=== PATIENT | female | born 1945 | race Caucasian/White ===

== ENCOUNTER 2019-04-04 16:55 | Emergency (ER) | payer OTHER ==
[~2019-04-04] VITALS: Ht 170.2 cm; Wt 65.8 kg
[~2019-04-04 16:55] MED LIST: ATOR10 PO; Antivert25 MG PO; CEPH500 PO; CYAN100 PO; ERGO50000 PO; GABA800 PO; GLIP10 PO; HYDACE5 PO; HYDR1TAB94 PO; INSDET100; INSR10I SC; INSULANI SC; INSULANI SUBQ; INSULANPEN SC; LOSA25 PO; MELO7.5 PO; METF500 PO; NAPR220 PO; Naprosyn375 MG PO; Norco 5-325 Ta1 EACH PO; ONDA4 PO; Oxycodone HCl5 M1 PO; PARO20 PO; RXHYDACE PO; SULTRIDS PO; TRADJENTA5 MG PO; Ultram50 MG PO; VICODIN 5-3001 EACH PO; Valium5 MG PO; Vibramycin100 MG PO
[2019-04-04] MEDS ORDERED: Percocet 5-3251 EACH PO (19:57)
== END 2019-04-04 20:49 | disposition home or self-care (01) ==
LOC: ER 16:55
DX: S82.045A Nondisplaced comminuted fracture of left patella, initial encounter for closed fracture (principal); S80.01XA Contusion of right knee, initial encounter; S20.219A Contusion of unspecified front wall of thorax, initial encounter; M25.522 Pain in left elbow; M25.521 Pain in right elbow; E11.40 Type 2 diabetes mellitus with diabetic neuropathy, unspecified; Z79.899 Other long term (current) drug therapy; Z79.4 Long term (current) use of insulin; W19.XXXA Unspecified fall, initial encounter
CPT/HCPCS: 29505; 71046; 73562-LT; 73562-RT; 99283-25

== ENCOUNTER 2019-06-02 15:08 | Emergency (ER) | payer OTHER ==
[~2019-06-02] VITALS: Ht 170.2 cm; Wt 64.4 kg
[~2019-06-02 15:08] MED LIST changes: +Percocet 5-3251 EACH PO
== END 2019-06-02 16:49 | disposition home or self-care (01) ==
LOC: ER 15:08
DX: S00.03XA Contusion of scalp, initial encounter (principal); S70.01XA Contusion of right hip, initial encounter; S50.01XA Contusion of right elbow, initial encounter; S30.0XXA Contusion of lower back and pelvis, initial encounter; W01.198A Fall on same level from slipping, tripping and stumbling with subsequent striking against other object, initial encounter; E11.40 Type 2 diabetes mellitus with diabetic neuropathy, unspecified; Z79.899 Other long term (current) drug therapy; Z79.84 Long term (current) use of oral hypoglycemic drugs
CPT/HCPCS: 73502; 99283-25

== ENCOUNTER 2020-08-12 14:37 | Emergency (ER) | payer OTHER ==
[~2020-08-12] VITALS: Ht 170.2 cm; Wt 70.3 kg
[2020-08-12] MEDS ORDERED: Percocet 5-3251 EACH PO (15:34)
== END 2020-08-12 16:30 | disposition home or self-care (01) ==
LOC: ER 14:37
DX: S82.851A Displaced trimalleolar fracture of right lower leg, initial encounter for closed fracture (principal); E11.40 Type 2 diabetes mellitus with diabetic neuropathy, unspecified; Z79.84 Long term (current) use of oral hypoglycemic drugs; W01.10XA Fall on same level from slipping, tripping and stumbling with subsequent striking against unspecified object, initial encounter; Y92.410 Unspecified street and highway as the place of occurrence of the external cause; Y92.000 Kitchen of unspecified non-institutional (private) residence as the place of occurrence of the external cause
CPT/HCPCS: 29505; 73600; 73610; 82947; 99283-25; A9270

== ENCOUNTER 2020-08-24 11:54 | Day surgery (SDC) | payer OTHER, SELFPAY ==
[~2020-08-24] VITALS: Ht 170.2 cm; Wt 70.5 kg
[~2020-08-24 11:54] MED LIST changes: +ATOR20; +CELE200; +LOSA25; +TRAM50
--- NOTE | 2020-08-24 12:46 | NUR ---
08/24/20 1246 Carmen Hayden FIRST IV ATTEMPT LH UNSUCCESSFUL, 2ND INFLITRATED RW.
--- NOTE | 2020-08-24 13:48 | NUR ---
08/24/20 1348 Danika Torres 0.15CC OF EPI PLACED INTO 30ML OF 0.5% BUPIVACAINE FOR A CONCENTRATION OF 1.200,000. ALL 30ML USED. NOTE: PATIENT WITH SEMI-OPEN FRACTURE BLISTER ON MEDIAL ASPECT OF ANKLE. AWARE.
[2020-12-16] MEDS ORDERED: ALLO100 PO (06:47)
[2020-12-16] MEDS ORDERED: BASAGLAR K100 UNIT/1 SC (06:48)
== END 2020-08-24 16:55 | disposition home or self-care (01) ==
LOC: ORSCSDS 11:54
PROVIDERS: Podiatrist Foot & Ankle Surgery
PROC: 0QSJ04Z Reposition Right Fibula with Internal Fixation Device, Open Approach (ICD-10-PCS; principal; 2020-08-24 13:00)
PROC: 0QSG04Z Reposition Right Tibia with Internal Fixation Device, Open Approach (ICD-10-PCS; principal; 2020-08-24 13:00)
DX: S82.851A Displaced trimalleolar fracture of right lower leg, initial encounter for closed fracture (principal); S93.491A Sprain of other ligament of right ankle, initial encounter; E11.9 Type 2 diabetes mellitus without complications; Z79.84 Long term (current) use of oral hypoglycemic drugs; Z79.899 Other long term (current) drug therapy; N18.9 Chronic kidney disease, unspecified; E05.00 Thyrotoxicosis with diffuse goiter without thyrotoxic crisis or storm; M79.7 Fibromyalgia
CPT/HCPCS: 82947; A9270; C1713; C1769; C1776; J0171; J0690; J1100; J2250; J2405; J2704; J3010; J7120

== ENCOUNTER 2020-10-17 11:47 | Day surgery (SDC) | payer OTHER, SELFPAY ==
[2020-12-16] MEDS ORDERED: ALLO100 PO (06:47)
[2020-12-16] MEDS ORDERED: BASAGLAR K100 UNIT/1 SC (06:48)
== END 2020-10-17 22:53 | disposition home or self-care (01) ==
LOC: WOUND 11:47
DX: T81.89XA Other complications of procedures, not elsewhere classified, initial encounter (principal); E11.22 Type 2 diabetes mellitus with diabetic chronic kidney disease; N18.9 Chronic kidney disease, unspecified; M19.90 Unspecified osteoarthritis, unspecified site; E11.51 Type 2 diabetes mellitus with diabetic peripheral angiopathy without gangrene
CPT/HCPCS: A9270; G0463

== ENCOUNTER 2020-10-24 01:24 | Day surgery (SDC) | payer OTHER, SELFPAY ==
[2020-12-16] MEDS ORDERED: ALLO100 PO (06:47)
[2020-12-16] MEDS ORDERED: BASAGLAR K100 UNIT/1 SC (06:48)
== END 2020-10-24 23:07 | disposition home or self-care (01) ==
LOC: WOUND 01:24
DX: E11.622 Type 2 diabetes mellitus with other skin ulcer (principal); L97.312 Non-pressure chronic ulcer of right ankle with fat layer exposed; L97.315 Non-pressure chronic ulcer of right ankle with muscle involvement without evidence of necrosis; E11.51 Type 2 diabetes mellitus with diabetic peripheral angiopathy without gangrene; E11.22 Type 2 diabetes mellitus with diabetic chronic kidney disease; N18.9 Chronic kidney disease, unspecified; M19.90 Unspecified osteoarthritis, unspecified site; S82.851D Displaced trimalleolar fracture of right lower leg, subsequent encounter for closed fracture with routine healing; W19.XXXD Unspecified fall, subsequent encounter
CPT/HCPCS: A9270

== ENCOUNTER 2020-10-31 00:11 | Day surgery (SDC) | payer OTHER, SELFPAY ==
[2020-12-16] MEDS ORDERED: ALLO100 PO (06:47)
[2020-12-16] MEDS ORDERED: BASAGLAR K100 UNIT/1 SC (06:48)
== END 2020-10-31 23:02 | disposition home or self-care (01) ==
LOC: WOUND 00:11
DX: E11.622 Type 2 diabetes mellitus with other skin ulcer (principal); L97.312 Non-pressure chronic ulcer of right ankle with fat layer exposed; E11.51 Type 2 diabetes mellitus with diabetic peripheral angiopathy without gangrene; E11.22 Type 2 diabetes mellitus with diabetic chronic kidney disease; N18.9 Chronic kidney disease, unspecified; M19.90 Unspecified osteoarthritis, unspecified site; Z79.84 Long term (current) use of oral hypoglycemic drugs
CPT/HCPCS: A9270

== ENCOUNTER 2020-11-07 00:45 | Day surgery (SDC) | payer OTHER, SELFPAY ==
[2020-12-16] MEDS ORDERED: ALLO100 PO (06:47)
[2020-12-16] MEDS ORDERED: BASAGLAR K100 UNIT/1 SC (06:48)
== END 2020-11-07 22:59 | disposition home or self-care (01) ==
LOC: WOUND 00:45
DX: E11.622 Type 2 diabetes mellitus with other skin ulcer (principal); L97.312 Non-pressure chronic ulcer of right ankle with fat layer exposed; E11.51 Type 2 diabetes mellitus with diabetic peripheral angiopathy without gangrene; E11.22 Type 2 diabetes mellitus with diabetic chronic kidney disease; N18.9 Chronic kidney disease, unspecified; M19.90 Unspecified osteoarthritis, unspecified site; Z79.84 Long term (current) use of oral hypoglycemic drugs
CPT/HCPCS: A9270

== ENCOUNTER 2020-11-21 00:28 | Day surgery (SDC) | payer OTHER ==
[2020-12-16] MEDS ORDERED: ALLO100 PO (06:47)
[2020-12-16] MEDS ORDERED: BASAGLAR K100 UNIT/1 SC (06:48)
== END 2020-11-22 22:55 | disposition home or self-care (01) ==
LOC: WOUND 00:28
DX: E11.622 Type 2 diabetes mellitus with other skin ulcer (principal); L97.315 Non-pressure chronic ulcer of right ankle with muscle involvement without evidence of necrosis; L97.312 Non-pressure chronic ulcer of right ankle with fat layer exposed; E11.51 Type 2 diabetes mellitus with diabetic peripheral angiopathy without gangrene; E11.22 Type 2 diabetes mellitus with diabetic chronic kidney disease; N18.9 Chronic kidney disease, unspecified; M19.90 Unspecified osteoarthritis, unspecified site
CPT/HCPCS: A9270

== ENCOUNTER 2020-11-28 00:51 | Day surgery (SDC) | payer OTHER | END 2020-11-28 22:52 | disposition home or self-care (01) | LOC: WOUND 00:51 | DX: E11.622 Type 2 diabetes mellitus with other skin ulcer (principal); L97.315 Non-pressure chronic ulcer of right ankle with muscle involvement without evidence of necrosis; L97.812 Non-pressure chronic ulcer of other part of right lower leg with fat layer exposed; T81.89XA Other complications of procedures, not elsewhere classified, initial encounter; S82.851D Displaced trimalleolar fracture of right lower leg, subsequent encounter for closed fracture with routine healing; E11.51 Type 2 diabetes mellitus with diabetic peripheral angiopathy without gangrene; E11.22 Type 2 diabetes mellitus with diabetic chronic kidney disease; N18.9 Chronic kidney disease, unspecified; Z79.84 Long term (current) use of oral hypoglycemic drugs; X58.XXXD Exposure to other specified factors, subsequent encounter | CPT/HCPCS: A9270 ==

== ENCOUNTER 2020-12-05 00:29 | Day surgery (SDC) | payer OTHER | END 2020-12-05 22:53 | disposition home or self-care (01) | LOC: WOUND 00:29 | DX: E11.622 Type 2 diabetes mellitus with other skin ulcer (principal); L97.312 Non-pressure chronic ulcer of right ankle with fat layer exposed; L97.319 Non-pressure chronic ulcer of right ankle with unspecified severity; E11.51 Type 2 diabetes mellitus with diabetic peripheral angiopathy without gangrene; T81.89XA Other complications of procedures, not elsewhere classified, initial encounter; E11.22 Type 2 diabetes mellitus with diabetic chronic kidney disease; N18.9 Chronic kidney disease, unspecified; Z96.661 Presence of right artificial ankle joint | CPT/HCPCS: A9270 ==

== ENCOUNTER 2024-01-30 13:46 | Emergency (ER) | payer OTHER ==
[~2024-01-30] VITALS: Ht 170.2 cm; Wt 63.5 kg
[~2024-01-30 13:46] MED LIST changes: +ALLO100 PO; +BASAGLAR K100 UNIT/1 SC
[2024-01-30 14:45] LABS: BASOPHILS ABSOLUTE AUTO 0.09 K/mm3 (0.00-0.23); BASOPHILS PERCENT AUTO 1 % (0-2); EOSINOPHILS PERCENT AUTO 2 % (0-6); Hematocrit 34.8 % (33.0-51.0); Hemoglobin 11.7 g/dL (11.5-16.0); IMMATURE GRAN ABSOLUTE AUTO 0.08 K/mm3 (0.00-0.10); IMMATURE GRAN PERCENT AUTO 1 % (0-1); LYMPHOCYTES ABSOLUTE AUTO 2.61 K/mm3 (0.84-5.20); LYMPHOCYTES PERCENT AUTO 20 % (21-46); MONOCYTES ABSOLUTE AUTO 0.91 K/mm3 (0.16-1.47); MONOCYTES PERCENT AUTO 7 % (4-13); Mean Corpuscular HGB 32.1 pg (26.0-34.0); Mean Corpuscular HGB Conc 33.6 g/dL (31.5-36.5); Mean Corpuscular Volume 95 fL (80-100); Mean Platelet Volume 9.4 fL (9.1-12.4); NEUTROPHILS ABSOLUTE AUTO 8.97 K/mm3 (1.96-9.15); NEUTROPHILS PERCENT AUTO 69 % (41-73); Platelet Count 428 K/mm3 (150-400); RDW Coefficient Variation 13.5 % (11.7-14.2); RDW Standard Deviation 47.4 fL (35.1-46.3); Red Blood Cell Count 3.65 M/mm3 (3.80-5.20); White Blood Cell Count 12.96 K/mm3 (4.00-11.30)
[2024-01-30 14:54] LABS: Albumin, Blood 4.1 g/dL (3.4-5.0); Albumin/Globulin Ratio 1.1 (0.8-1.8); Bilirubin, Total 0.3 mg/dL (0.1-1.0); Bun/Creatinine Ratio 25.7 (12.0-20.0); Calcium, Blood 9.8 mg/dL (8.5-10.1); Creatinine, Blood 1.09 mg/dL (0.40-1.00); Globulin, Blood 3.8 g/dL (2.2-4.0); Potassium, Blood 4.5 mmol/L (3.5-5.5); Total Protein, Blood 7.9 g/dL (6.4-8.2)
[2024-01-30] MEDS ORDERED: TROSPIUM CHLORI20 M1 PO (15:38)
[2024-01-30] MEDS ORDERED: LOSARTAN POTASS25 M2 PO (15:39)
[2024-01-30] MEDS ORDERED: TRULICITY0.75 MG/01 SC (15:39)
[2024-01-30 18:00] VITALS: BP 128/79
== END 2024-01-30 18:10 | disposition home or self-care (01) ==
LOC: ER 13:46
PROVIDERS: Student in an Organized Health Care Education/Training Program
DX: S09.90XA Unspecified injury of head, initial encounter (principal); S32.592A Other specified fracture of left pubis, initial encounter for closed fracture; E11.40 Type 2 diabetes mellitus with diabetic neuropathy, unspecified; W01.0XXA Fall on same level from slipping, tripping and stumbling without subsequent striking against object, initial encounter; Z79.899 Other long term (current) drug therapy; Z79.84 Long term (current) use of oral hypoglycemic drugs; Z79.4 Long term (current) use of insulin; Z88.1 Allergy status to other antibiotic agents; Z88.5 Allergy status to narcotic agent; Z88.8 Allergy status to other drugs, medicaments and biological substances
CPT/HCPCS: 70450; 73502; 80053; 83735; 83880; 84484; 85025; 93005; 93010; 99284-25

== ENCOUNTER 2024-09-29 18:01 | Emergency (ER) | payer OTHER ==
[~2024-09-29] VITALS: Ht 165.1 cm; Wt 52.2 kg
[~2024-09-29 18:01] MED LIST changes: +LOSARTAN POTASS25 M2 PO; +TROSPIUM CHLORI20 M1 PO; +TRULICITY0.75 MG/01 SC
[2024-09-29 18:20] VITALS: BP 181/90
[2024-09-29 18:29] LABS: BASOPHILS ABSOLUTE AUTO 0.13 K/mm3 (0.00-0.23); BASOPHILS PERCENT AUTO 1 % (0-2); EOSINOPHILS ABSOLUTE AUTO 0.46 K/mm3 (0.00-0.68); EOSINOPHILS PERCENT AUTO 5 % (0-6); Hematocrit 33.7 % (33.0-51.0); Hemoglobin 11.5 g/dL (11.5-16.0); IMMATURE GRAN ABSOLUTE AUTO 0.04 K/mm3 (0.00-0.10); IMMATURE GRAN PERCENT AUTO 0 % (0-1); LYMPHOCYTES ABSOLUTE AUTO 4.46 K/mm3 (0.84-5.20); LYMPHOCYTES PERCENT AUTO 45 % (21-46); MONOCYTES ABSOLUTE AUTO 0.98 K/mm3 (0.16-1.47); MONOCYTES PERCENT AUTO 10 % (4-13); Mean Corpuscular HGB 32.3 pg (26.0-34.0); Mean Corpuscular HGB Conc 34.1 g/dL (31.5-36.5); Mean Corpuscular Volume 95 fL (80-100); Mean Platelet Volume 9.1 fL (9.1-12.4); NEUTROPHILS ABSOLUTE AUTO 3.87 K/mm3 (1.96-9.15); NEUTROPHILS PERCENT AUTO 39 % (41-73); Platelet Count 443 K/mm3 (150-400); RDW Coefficient Variation 13.8 % (11.7-14.2); RDW Standard Deviation 47.9 fL (35.1-46.3); Red Blood Cell Count 3.56 M/mm3 (3.80-5.20); White Blood Cell Count 9.94 K/mm3 (4.00-11.30)
[2024-09-29 18:53] LABS: Albumin, Blood 3.9 g/dL (3.4-5.0); Bilirubin, Total 0.2 mg/dL (0.1-1.0); Bun/Creatinine Ratio 19.5 (12.0-20.0); Calcium, Blood 9.5 mg/dL (8.5-10.1); Creatinine, Blood 1.18 mg/dL (0.40-1.00); Globulin, Blood 3.9 g/dL (2.2-4.0); Potassium, Blood 4.4 mmol/L (3.5-5.5); Total Protein, Blood 7.8 g/dL (6.4-8.2)
[2024-09-29 19:02] LABS: International Normalized Ratio 0.9; Prothrombin Time Results 9.7 Sec (9.7-11.5)
[2024-09-29] MEDS ORDERED: Acetaminophen 500 MG Tab PO ONE (19:30)
== END 2024-09-29 20:22 | disposition home or self-care (01) ==
LOC: ER 18:01
PROVIDERS: Student in an Organized Health Care Education/Training Program
DX: S00.81XA Abrasion of other part of head, initial encounter (principal); S90.512A Abrasion, left ankle, initial encounter; S80.212A Abrasion, left knee, initial encounter; S60.812A Abrasion of left wrist, initial encounter; M79.642 Pain in left hand; M54.6 Pain in thoracic spine; R07.89 Other chest pain; Z88.1 Allergy status to other antibiotic agents; Z88.5 Allergy status to narcotic agent; Z88.8 Allergy status to other drugs, medicaments and biological substances; Z79.85 Long-term (current) use of injectable non-insulin antidiabetic drugs; Z79.84 Long term (current) use of oral hypoglycemic drugs; Z79.899 Other long term (current) drug therapy; Z79.4 Long term (current) use of insulin; V89.2XXA Person injured in unspecified motor-vehicle accident, traffic, initial encounter
CPT/HCPCS: 70450; 71045; 71260; 72125; 73130; 74177; 80053; 84484; 85025; 85610; 85730; 93005; 93010; 99285-25; A9270; Q9967

== ENCOUNTER 2025-03-20 16:39 | Emergency (ER) | payer OTHER ==
[~2025-03-20] VITALS: Ht 170.2 cm; Wt 59.0 kg
[2025-03-20 16:41] VITALS: BP 166/75
[2025-03-20 17:09] LABS: BASOPHILS ABSOLUTE AUTO 0.10 K/mm3 (0.00-0.23); BASOPHILS PERCENT AUTO 1 % (0-2); EOSINOPHILS ABSOLUTE AUTO 0.22 K/mm3 (0.00-0.68); EOSINOPHILS PERCENT AUTO 2 % (0-6); Hematocrit 33.9 % (33.0-51.0); Hemoglobin 11.2 g/dL (11.5-16.0); IMMATURE GRAN ABSOLUTE AUTO 0.04 K/mm3 (0.00-0.10); IMMATURE GRAN PERCENT AUTO 0 % (0-1); LYMPHOCYTES ABSOLUTE AUTO 2.13 K/mm3 (0.84-5.20); LYMPHOCYTES PERCENT AUTO 15 % (21-46); MONOCYTES ABSOLUTE AUTO 0.85 K/mm3 (0.16-1.47); MONOCYTES PERCENT AUTO 6 % (4-13); Mean Corpuscular HGB Conc 33.0 g/dL (31.5-36.5); Mean Corpuscular Volume 96 fL (80-100); NEUTROPHILS ABSOLUTE AUTO 10.67 K/mm3 (1.96-9.15); NEUTROPHILS PERCENT AUTO 76 % (41-73); NRBC ABSOLUTE 0.00 K/mm3 (0.00-0.02); NRBC Auto 0.0 /100 WBC (0.0-0.2); Platelet Count 391 K/mm3 (150-400); RDW Coefficient Variation 13.2 % (11.7-14.2); RDW Standard Deviation 46.9 fL (35.1-46.3)
[2025-03-20 17:35] LABS: Alanine Aminotransfer (ALT/SGP 27.0 U/L (12-78); Albumin, Blood 4.0 g/dL (3.4-5.0); Albumin/Globulin Ratio 1.1 (0.8-1.8); Anion Gap 10.0 mmol/L (3-11); Aspartate Aminotrans (AST/SGOT 16.0 U/L (12-37); Bilirubin, Total 0.4 mg/dL (0.1-1.0); Blood Urea Nitrogen 21.0 mg/dL (8-24); CO2, Blood 22.0 mmol/L (21-32); Calcium, Blood 9.3 mg/dL (8.5-10.1); Chloride, Blood 106.0 mmol/L (98-108); Creatinine, Blood 1.23 mg/dL (0.40-1.00); Globulin, Blood 3.7 g/dL (2.2-4.0); Glucose, Blood 231.0 mg/dL (70-99); Potassium, Blood 3.6 mmol/L (3.5-5.5); Sodium, Blood 134.0 mmol/L (136-145); Total Protein, Blood 7.7 g/dL (6.4-8.2)
== END 2025-03-20 18:24 | disposition home or self-care (01) ==
LOC: ER 16:39
PROVIDERS: Emergency Medicine
DX: S06.0X9A Concussion with loss of consciousness of unspecified duration, initial encounter (principal); S01.81XA Laceration without foreign body of other part of head, initial encounter; E11.40 Type 2 diabetes mellitus with diabetic neuropathy, unspecified; W01.0XXA Fall on same level from slipping, tripping and stumbling without subsequent striking against object, initial encounter; Z79.4 Long term (current) use of insulin; Z79.84 Long term (current) use of oral hypoglycemic drugs; Z88.1 Allergy status to other antibiotic agents; Z88.5 Allergy status to narcotic agent; Z88.8 Allergy status to other drugs, medicaments and biological substances
CPT/HCPCS: 12001; 70450; 80053; 85025; 93005; 93010; 99284-25

== ENCOUNTER 2025-05-03 14:40 | Emergency (ER) | payer OTHER ==
[~2025-05-03] VITALS: Ht 170.2 cm; Wt 61.2 kg
[2025-05-03] MEDS ORDERED: Morphine Sulfate 4 MG/1 ML Injection IM ONE (17:40)
[2025-05-03] MEDS ORDERED: Morphine Sulfate 4 MG/1 ML Injection IV ONE (17:45)
[2025-05-03] MEDS ORDERED: Ondansetron HCl 2 MG / ML 2ML Vial IV ONE (19:45)
[2025-05-03] MEDS ORDERED: ACET500 PO (19:50)
[2025-05-03 20:30] VITALS: BP 143/70
== END 2025-05-03 20:43 | disposition home or self-care (01) ==
LOC: ER 14:40
DX: S00.01XA Abrasion of scalp, initial encounter (principal); M16.11 Unilateral primary osteoarthritis, right hip; M19.022 Primary osteoarthritis, left elbow; E04.1 Nontoxic single thyroid nodule; E11.9 Type 2 diabetes mellitus without complications; V00.831A Fall from motorized mobility scooter, initial encounter; Z88.1 Allergy status to other antibiotic agents; Z88.5 Allergy status to narcotic agent; Z88.8 Allergy status to other drugs, medicaments and biological substances; Z79.899 Other long term (current) drug therapy; Z79.84 Long term (current) use of oral hypoglycemic drugs; Z79.4 Long term (current) use of insulin
CPT/HCPCS: 70450; 72125; 73070; 73502; 82947; 93005; 93010; 96374; 96375; 99285-25; J2270; J2405; L0160